=== PATIENT | male | born 1935 | race Caucasian/White ===

== ENCOUNTER → 2016-08-03 | Outpatient (CLI) | payer MEDICARE, OTHER | LOC: HEART CORB 09:30 | DX: I49.3 Ventricular premature depolarization (principal) ==

== ENCOUNTER → 2016-08-10 | Outpatient (CLI) | payer MEDICARE, OTHER | LOC: HEART CORB 13:29 | DX: I49.3 Ventricular premature depolarization (principal); Z86.79 Personal history of other diseases of the circulatory system | CPT/HCPCS: 93306 ==